=== PATIENT | male | born 1960 | race Caucasian/White ===

== ENCOUNTER 2020-04-18 12:37 | Observation (INO) ==
[2020-04-18] MEDS ORDERED: SODIUM CHLORIDE 0.9% 1000ML 1,000 ML IV ONE (14:00)
--- NOTE | 2020-04-18 14:03 | Emergency Department Note ---
History of Present Illness General Chief complaint: Shortness of Breath/Dyspnea Stated complaint: SOB,BLOOD CLOT L LEG Time Seen by Provider: 04/18/20 13:36 Source: patient Mode of arrival: ambulatory Limitations: no limitations History of Present Illness Provider complaint: Short of breath, known DVT Onset (ago): hour(s) Associated symptoms: + shortness of breath; no chest pain, no fever/chills, no loss of appetite and no nausea/vomiting Treatments prior to arrival: none Is a 60-year-old male who presents emergency department with concern for shortness of breath. Patient was diagnosed on Tuesday with a DVT, and started on Lovenox injections. He states he is scheduled to follow-up with our Coumadin clinic on Tuesday. Patient states today he had an episode where he felt very short of breath, states the symptoms have since improved, however due to the known DVT he came in for additional evaluation. Patient denies any prior history of DVT or PE. States a first-degree relative did have a blood clot, however he does not recall any complications or other family history. Patient states when he saw his family doctor to discuss this it was felt that this was a result of relative immobility during the pandemic. Patient denies any current chest pain or palpitations, fevers or chills. Patient has noticed slightly increased fatigue. He states he has been elevating his leg as often as he can at rest. Patient states he did start giving himself Lovenox injections. When he called his family doctor after having the symptoms today he was referred to the emergency room for evaluation of a possible PE. Pt seen during a time of high acuity and national emergency pandemic while wearing PPE. Home Medications Medication Instructions Recorded Confirmed Type alprazolam 0.5 mg PO BID PRN 04/14/20 04/18/20 History propranolol 20 mg PO DAILY PRN 04/14/20 04/18/20 History rivaroxaban [Xarelto] 15 mg PO BID 21 Days #42 tab 04/19/20 Rx rivaroxaban [Xarelto] 20 mg PO DAILY #30 tab 04/19/20 Rx Allergies Allergy/AdvReac Type Severity Reaction Status Date / Time tetanus immune globulin Allergy Unknown Unverified 04/18/20 14:39 Past Med/Surg History Medical History Anxiety No pertinent family history Surgical History No pertinent past surgical history Family History (Updated 04/18/20 @ 17:54 by TJ Parks) Grandfather (Paternal) Deep vein thrombosis Social History Smoking Status: Never smoker Hx Alcohol Use: Yes Alcohol type: wine and hard liquor Hx Substance Use: No Preferred Language: [place] Beliefs That Will Affect Care: None Current Living Situation: Significant Other Feels Safe at Home: Yes Assistive Devices: None Review of Systems See HPI for pertinent positives & negatives. and A total of 10 systems reviewed and were otherwise negative Physical Exam Vital Signs Vital Signs - 24 hr 04/18/20 12:58 04/18/20 13:06 04/18/20 13:40 Temperature 36.7 C Temperature Source Temporal Artery Scan Pulse Rate 69 Pulse Rate from SpO2 Sensor Respiratory Rate 19 Respiratory Effort / Characteristics Non-Labored Spontaneous Non-Labored Spontaneous Respiratory Depth Normal Normal Blood Pressure 130/93 Blood Pressure Mean 105 Blood Pressure Position Sitting Pulse Oximetry 95 98 Oxygen Delivery Method Room Air Room Air Room Air Sepsis Recent Fever Within 48 Hours No Sepsis New/Unexplained Change in Mental Status No Sepsis Action Taken by Nursing No Action Required 04/18/20 14:28 04/18/20 15:00 04/18/20 15:39 Temperature Temperature Source Pulse Rate 49 L 54 L 61 Pulse Rate from SpO2 Sensor 51 L 55 L 63 Respiratory Rate 13 14 12 Respiratory Effort / Characteristics Respiratory Depth Blood Pressure 122/80 133/85 Blood Pressure Mean 94 101 Blood Pressure Position Pulse Oximetry 97 97 94 Oxygen Delivery Method Sepsis Recent Fever Within 48 Hours Sepsis New/Unexplained Change in Mental Status Sepsis Action Taken by Nursing 04/18/20 15:40 Temperature Temperature Source Pulse Rate 64 Pulse Rate from SpO2 Sensor 64 Respiratory Rate 12 Respiratory Effort / Characteristics Respiratory Depth Blood Pressure Blood Pressure Mean Blood Pressure Position Pulse Oximetry 98 Oxygen Delivery Method Sepsis Recent Fever Within 48 Hours Sepsis New/Unexplained Change in Mental Status Sepsis Action Taken by Nursing GENERAL: alert, well appearing, well nourished, no distress, non-toxic EYE EXAM: normal conjunctiva, PERRL and EOM's grossly intact OROPHARYNX: no exudate, no erythema, lips, buccal mucosa, and tongue normal and mucous membranes are moist NECK: supple, no nuchal rigidity, no adenopathy, non-tender LUNGS: Clear to auscultation. Normal chest wall mechanics, no w/r/r HEART: no murmurs, S1 normal and S2 normal ABDOMEN: abdomen soft, non-tender, normo-active bowel sounds, no masses, no rebound or guarding. BACK: Back is symmetrical on inspection and there is no deformity, no midline tenderness, no CVA tenderness. SKIN: no rashes and no bruising UPPER EXTREMITIES: upper extremities are grossly normal. FROM, nml pulses b/l. LOWER EXTREMITIES: Trace left LE pitting edema. FROM, nml pulses b/l. NEURO EXAM: Normal sensorium, cranial nerves II-XII grossly intact, normal speech, no gross weakness of arms, no gross weakness of legs. Gross sensation intact. Course Course 1555: Patient updated on results at bedside. 1608: Case discussed with Dr. Simpson and ARGELIA Espinosa. They will see if it is possible for patient to have an echo done emergently. Administered Medications Discontinued Medications Alprazolam (Alprazolam 0.5 Mg Tablet) 0.5 mg PO BID PRN PRN Reason: Anxiety Stop: 05/18/20 20:21 Last Admin: 04/19/20 08:00 Dose: 0.5 mg Documented by: [id number] Admin: 04/18/20 20:59 Dose: 0.5 mg Documented by: [id number] Sodium Chloride (Nss 1000ml) 1,000 mls @ 999 mls/hr IV .Q1H1M ONE Stop: 04/18/20 15:00 Last Infusion: 04/18/20 15:38 Dose: 0 mls/hr Documented by: [id number] Admin: 04/18/20 14:24 Dose: 999 mls/hr Documented by: [id number] Ioversol (Optiray 320 125ml) 116 ml IV ONCE ONE Stop: 04/18/20 15:29 Last Admin: 04/18/20 15:29 Dose: 116 ml Documented by: [id number] Ioversol (Optiray 320 125ml) 120 ml IV ONCE ONE Stop: 04/18/20 18:41 Last Admin: 04/18/20 18:41 Dose: 120 ml Documented by: [id number] Propranolol HCl (Propranolol Hcl 20 Mg Tab) 20 mg PO DAILY PRN PRN Reason: Anxiety Stop: 05/18/20 20:21 Last Admin: 04/19/20 08:00 Dose: 20 mg Documented by: [id number] Rivaroxaban (Rivaroxaban 15 Mg Tab) 15 mg PO Q12H BEVERLY Stop: 05/08/20 19:59 Last Admin: 04/19/20 08:00 Dose: 15 mg Documented by: [id number] Admin: 04/18/20 20:59 Dose: 15 mg Documented by: [id number] Medical Decision Making Differential Diagnosis Differential diagnoses includes but is not limited to pneumonia, bronchitis, COPD/Asthma exacerbation, pneumothorax, pulmonary embolism, congestive heart failure, acute coronary syndrome Medical Records Attestation: I reviewed the patient's medical records. Home Medications Current Medication List: was personally reviewed by me Laboratory Data Attestation: I reviewed the patient's lab results. Result diagrams: 04/18/20 14:24 04/18/20 14:24 Lab Results 04/18/20 04/18/20 04/18/20 Range/Units 14:24 14:24 14:24 WBC 6.28 (4.8-10.8) K/uL RBC 4.65 L (4.7-6.1) M/uL Hgb 15.5 (14.0-18.0) g/dL Hct 43.6 (42-52) % MCV 93.8 (80-100) fL MCH 33.3 (25-34) pg MCHC 35.6 (32-36) g/dL RDW Std Deviation 41.1 (36.4-46.3) fL RDW Coeff of Bren 12.2 (11.5-14.5) % Plt Count 271 (130-400) K/uL MPV 8.6 (7.4-10.4) fL Immature Gran % (Auto) 0.2 % Neut % (Auto) 61.9 % Lymph % (Auto) 25.3 % [place] % (Auto) 8.3 % Eos % (Auto) 3.8 % Baso % (Auto) 0.5 % Neut # (Auto) 3.89 (1.4-6.5) K/uL Lymph # (Auto) 1.59 (1.2-3.4) K/uL [place] # (Auto) 0.52 (0.11-0.59) K/uL Eos # (Auto) 0.24 (0-0.5) K/uL Baso # (Auto) 0.03 (0-0.2) K/uL Immature Gran # (Auto) 0.01 (0.00-0.02) K/uL PT 11.1 (9.0-12.0) Seconds INR 1.1 (0.9-1.1) Sodium 140 (136-145) mmol/L Potassium 3.7 (3.5-5.1) mmol/L Chloride 107 (98-107) mmol/L Carbon Dioxide 26 (21-32) mmol/L Anion Gap 8.0 (3-11) BUN 12 (7-18) mg/dl Creatinine 0.97 (0.6-1.4) mg/dl Est Cr Clr Drug Dosing 95.8 ml/min Est GFR ( Amer) 98.6 Est GFR (Non-Af Amer) 85.1 BUN/Creatinine Ratio 12.6 (10-20) Glucose 85 (70-99) mg/dl Calcium 9.8 (8.5-10.1) mg/dl Magnesium 2.1 (1.8-2.4) mg/dl Total Bilirubin 0.6 (0.2-1) mg/dl AST 60 H (15-37) U/L ALT 65 (12-78) U/L Alkaline Phosphatase 63 (45-117) U/L Troponin I < 0.015 (0-0.045) ng/ml NT-Pro-B Natriuret Pep 86 (0-900) pg/ml Total Protein 8.1 (6.4-8.2) gm/dl Albumin 4.1 (3.4-5.0) gm/dl Globulin 4.0 (2.5-4.0) gm/dl Albumin/Globulin Ratio 1.0 (0.9-2) Lipase 93 (73-393) U/L Anti-Cardiolipin IgG Ab Anti-Cardiolipin IgM Ab COVID-19 Eval Order SARS-CoV-2, RNA, NAAT (NEGATIVE) 04/18/20 04/18/20 04/18/20 Range/Units 17:59 17:59 19:10 WBC (4.8-10.8) K/uL RBC (4.7-6.1) M/uL Hgb (14.0-18.0) g/dL Hct (42-52) % MCV (80-100) fL MCH (25-34) pg MCHC (32-36) g/dL RDW Std Deviation (36.4-46.3) fL RDW Coeff of Bren (11.5-14.5) % Plt Count (130-400) K/uL MPV (7.4-10.4) fL Immature Gran % (Auto) % Neut % (Auto) % Lymph % (Auto) % [place] % (Auto) % Eos % (Auto) % Baso % (Auto) % Neut # (Auto) (1.4-6.5) K/uL Lymph # (Auto) (1.2-3.4) K/uL [place] # (Auto) (0.11-0.59) K/uL Eos # (Auto) (0-0.5) K/uL Baso # (Auto) (0-0.2) K/uL Immature Gran # (Auto) (0.00-0.02) K/uL PT (9.0-12.0) Seconds INR (0.9-1.1) Sodium (136-145) mmol/L Potassium (3.5-5.1) mmol/L Chloride (98-107) mmol/L Carbon Dioxide (21-32) mmol/L Anion Gap (3-11) BUN (7-18) mg/dl Creatinine (0.6-1.4) mg/dl Est Cr Clr Drug Dosing ml/min Est GFR ( Amer) Est GFR (Non-Af Amer) BUN/Creatinine Ratio (10-20) Glucose (70-99) mg/dl Calcium (8.5-10.1) mg/dl Magnesium (1.8-2.4) mg/dl Total Bilirubin (0.2-1) mg/dl AST (15-37) U/L ALT (12-78) U/L Alkaline Phosphatase (45-117) U/L Troponin I (0-0.045) ng/ml NT-Pro-B Natriuret Pep (0-900) pg/ml Total Protein (6.4-8.2) gm/dl Albumin (3.4-5.0) gm/dl Globulin (2.5-4.0) gm/dl Albumin/Globulin Ratio (0.9-2) Lipase (73-393) U/L Anti-Cardiolipin IgG Ab Cancelled Anti-Cardiolipin IgM Ab Cancelled COVID-19 Eval Order Covid19 IDNow [facility] SARS-CoV-2, RNA, NAAT NEGATIVE (NEGATIVE) Imaging Data Radiologist's Impression: CT ANGIOGRAPHY OF THE CHEST, PULMONARY EMBOLUS PROTOCOL CLINICAL HISTORY: Shortness of breath. Evaluate for pulmonary embolus. COMPARISON STUDY: No previous studies for comparison. TECHNIQUE: Following IV administration of 116 mL of Optiray-320, helical axial images of the chest were obtained utilizing the pulmonary embolus protocol. Maximal intensity projections and sagittal and coronal reformats were viewed on an independent 3D workstation. IV contrast was administered without complication. Automated exposure control was utilized for the study. A dose lowering technique was utilized adhering to the principles of ALARA. CT DOSE: 565.61 mGycm FINDINGS: Multiple lobar and segmental pulmonary emboli within the right lower lobe are noted. Segmental pulmonary emboli within the right middle lobe are noted. There are a few additional tiny bilateral pulmonary emboli. No pulmonary infarct is present. There is no pericardial effusion. There is mild dilatation of the right ventricle without definitive CT evidence for right heart strain. No pneumothorax or pleural effusion is noted. Note is made of a few small groundg lass opacities within the right upper lobe. Bony thorax is unremarkable. Upper abdomen is unremarkable. There is no thoracic lymphadenopathy. IMPRESSION: 1. Multiple lobar and segmental pulmonary emboli within the right lung. A few additional smaller pulmonary emboli, as described above. No pulmonary infarct. Mild dilatation of the right ventricle. Mild right heart strain would be difficult to exclude. 2. A few groundglass opacities within the right upper lobe. These favor an infectious process. A follow-up chest CT in 3 months to ensure resolution is recommended. ACT 112: Negative or not required by law. Electronically signed by: Jay Soto M.D. 04/18/2020 3:45 PM ECG Data Attestation: I personally reviewed and interpreted this ECG as follows: Indication: + SOB/dyspnea Rate (beats per minute): 57 Rhythm: + sinus bradycardia ECG Intervals/blocks: + Normal QRS and + Normal QT ECG Theresa: + Normal ECG ST segments: + Normal ST segments MDM Narrative Pt here with concern for an episode of SOB after being dx with extensive dvt the beginning of the week. No prior hx of DVT/PE, no significant fam hx. VS stable. No current sob at rest. Labs sent and CT performed after extensive bedside discussion with the patient. I did review recent LLE doppler which showed extensive clot the entire length of the LLE. CT did review multiple subsegmental PE's. Pt did receive his lovenox earlier today and had been giving himself injection daily awaiting further discussion in coag clinic appt regarding oral medication. Case discussed with hospitalist for additional evaluation and mgmt given extensive multiple lobe involvement, extensive DVT and risk fo propogation, as well as rad mention on CT of possible evolving right heart strain despite negative trop and BNP. VS stable in the ER. Pt verbalized understanding of all results. An order was placed for continuous cardiac monitoring. The monitor shows a rate of _70_ with _normal sinus_ rhythm. Impression & Plan Acute dyspnea, DVT (deep venous thrombosis), Pulmonary embolism Discharge Plan Visit Data Chief Complaint: Shortness of Breath/Dyspnea Stated Complaint: SOB,BLOOD CLOT L LEG ED Provider: Melissa Tavares Discharge Problem: Acute dyspnea, DVT (deep venous thrombosis), Pulmonary embolism Patient Disposition: Admitted As Inpatient Discharge Instructions Interventions: ED Discharge Assessment Last Done: 04/18/20 19:52
[2020-04-18 14:37] LABS: Basophils # (auto) 0.03 K/uL (0-0.2); Basophils % (auto) 0.5 %; Eosinophils # (auto) 0.24 K/uL (0-0.5); Eosinophils % (auto) 3.8 %; Hematocrit (blood only) 43.6 % (42-52); Hemoglobin 15.5 g/dL (14.0-18.0); Immature Granulocytes # (auto) 0.01 K/uL (0.00-0.02); Immature Granulocytes % (auto) 0.2 %; Lymphocytes # (auto) 1.59 K/uL (1.2-3.4); Lymphocytes % (auto) 25.3 %; Mean Corpuscular Hemoglobin 33.3 pg (25-34); Mean Corpuscular Hgb Conc 35.6 g/dL (32-36); Mean Corpuscular Volume 93.8 fL (80-100); Mean Platelet Volume 8.6 fL (7.4-10.4); Monocytes # (auto) 0.52 K/uL (0.11-0.59); Monocytes % (auto) 8.3 %; Neutrophils # (auto) 3.89 K/uL (1.4-6.5); Neutrophils % (auto) 61.9 %; Platelet Count 271 K/uL (130-400); RDW Coefficient of Variation 12.2 % (11.5-14.5); RDW Standard Deviation 41.1 fL (36.4-46.3); Red Blood Count 4.65 M/uL (4.7-6.1); White Blood Count 6.28 K/uL (4.8-10.8)
[2020-04-18 14:48] LABS: INR 1.1 (0.9-1.1); Prothrombin Time 11.1 Seconds (9.0-12.0)
[2020-04-18 14:56] LABS: Alanine Aminotransferase 65 U/L (12-78); Albumin Level 4.1 gm/dl (3.4-5.0); Aspartate Aminotransferase 60 U/L (15-37); BUN Creatinine Ratio 12.6 (10-20); Blood Urea Nitrogen 12 mg/dl (7-18); Calcium 9.8 mg/dl (8.5-10.1); Carbon Dioxide 26 mmol/L (21-32); Chloride 107 mmol/L (98-107); Creatinine Clr Calc Pharmacy 95.8 ml/min; Est GFR (African American) 98.6; Est GFR (Non-African American) 85.1; Glucose 85 mg/dl (70-99); Lipase 93 U/L (73-393); Magnesium 2.1 mg/dl (1.8-2.4); Potassium 3.7 mmol/L (3.5-5.1); Sodium 140 mmol/L (136-145)
[2020-04-18 15:01] LABS: Alkaline Phosphatase 63 U/L (45-117); Bilirubin,Total 0.6 mg/dl (0.2-1); NT Pro B Type Natriuretic Pept 86 pg/ml (0-900); Total Protein 8.1 gm/dl (6.4-8.2); Troponin I < 0.015 ng/ml (0-0.045)
[2020-04-18] MEDS ORDERED: OPTIRAY 320 125ml IV ONE ×2 (15:28→18:40)
--- NOTE | 2020-04-18 15:47 | CT Scan Report ---
CT ANGIOGRAPHY OF THE CHEST, PULMONARY EMBOLUS PROTOCOL CLINICAL HISTORY: Shortness of breath. Evaluate for pulmonary embolus. COMPARISON STUDY: No previous studies for comparison. TECHNIQUE: Following IV administration of 116 mL of Optiray-320, helical axial images of the chest we re obtained utilizing the pulmonary embolus protocol. Maximal intensity projections and sagittal and coronal reformats were viewed on an independent 3D workstation. IV contrast was administered withou t complication. Automated exposure control was utilized for the study. A dose lowering technique wa s utilized adhering to the principles of ALARA. CT DOSE: 565.61 mGycm FINDINGS: Multiple lobar and segmental pulmonary emboli within the right lower lobe are noted. Segme ntal pulmonary emboli within the right middle lobe are noted. There are a few additional tiny bilater al pulmonary emboli. No pulmonary infarct is present. There is no pericardial effusion. There is mild dilatation of the right ventricle without definitive CT evidence for right heart strain. No pneumoth orax or pleural effusion is noted. Note is made of a few small groundglass opacities within the right upper lobe. Bony thorax is unremarkable. Upper abdomen is unremarkable. There is no thoracic lymphad enopathy. IMPRESSION: 1. Multiple lobar and segmental pulmonary emboli within the right lung. A few additional smaller pulm onary emboli, as described above. No pulmonary infarct. Mild dilatation of the right ventricle. Mild right heart strain would be difficult to exclude. 2. A few groundglass opacities within the right upper lobe. These favor an infectious process. A foll ow-up chest CT in 3 months to ensure resolution is recommended. ACT 112: Negative or not required by law. Electronically signed by: Jay Soto M.D. 04/18/2020 3:45 PM
--- NOTE | 2020-04-18 17:31 | XCELERA ---
[id number]
--- NOTE | 2020-04-18 18:00 | History & Physical Report ---
Date of Service April 18, 2020 Assessment & Plan (1) Pulmonary embolism: Acute PE in the setting of large left DVT, ? failure of lovenox - Lovenox tonight with Xeralto (2) DVT (deep venous thrombosis): - As above - No SCDs to lower legs - Patient may ambulate (3) Anxiety: Continue Xanax PRN History of Present Illness Primary Care Provider: Gaudencio Pratt MD 60 YOM comes to the emergency room for shortness of breath in the setting of being diagnosed with a large left leg DVT on 14Apr2020. Duplex revealed an occlusive deep venous thrombus within the left common femoral, femoral, popliteal, posterior tibial, peroneal and anterior tibial veins, and several vessels were expanded. The patient opted for Lovenox treatment with Coumadin. He was discharged on weight based Lovenox and has not started his Coumadin yet. The patient denies any trauma to the leg or prolonged travel. He endorses that he has been more sedintary than normal by working from home and spending 8-12 hours in his office sitting. He normally was active and enjoyed playing soccer prior to the pandemic. He has been working from home for approx the past year. He started getting some right sided pleural chest pain last night and increasingly dyspneic which brought him to the emergency room. A CTA scan was done in the EMD with multiple lobar segmental pulmonary emboli in the right lower and middle lobes. The patient has a PESI score of 0 and has no evidence of right sided heart strain with normal BNP of 86, negative troponin, and a ECHO that shows normal PA pressures as well as no right heart strain. The patient is exhibiting no signs of shock and is not tachycardic or hypoxic. Concerning for the size of the lower extremity DVT in the setting of no significant history a CT venogram of the abdomen and pelvis is obtained to identify the propagation of the DVT. Patient will be observed in house pending these results as well as transition to a NOAC. Allergies Allergy/AdvReac Type Severity Reaction Status Date / Time tetanus immune globulin Allergy Unknown Unverified 04/18/20 14:39 Home Medications Medication Instructions Recorded Confirmed Type alprazolam 0.5 mg PO BID PRN 04/14/20 04/18/20 History enoxaparin [Lovenox] 100 mg SUBCUT Q12H #28 ml 04/14/20 04/18/20 Rx propranolol 20 mg PO DAILY PRN 04/14/20 04/18/20 History Past Med/Surg History Medical History Anxiety No pertinent family history Surgical History No pertinent past surgical history Family History (Updated 04/18/20 @ 17:54 by TJ Parks) Grandfather (Paternal) Deep vein thrombosis Social History Smoking Status: Never smoker Feels Safe at Home: Yes Review of Systems Review of Systems: REVIEW OF SYSTEMS: Constitutional: No fever, sweats or chills Eyes: No diplopia, no worsening or blurred vision ENT: normal hearing, no trouble swallowing Respiratory: No cough, sputum, dyspnea at rest or on exertion Cardiovascular: No chest pain, tightness or palpitations Abdomen: No pain, nausea, vomiting, diarrhea or constipation Musculoskeletal: (+) left lower leg calf pain, swelling, Neurologic: No weakness, numbness/tingling, or balance problems Psychiatric: (+) anxiety (-) depression Skin: No rash or itch Physical Exam Physical Exam: REVIEW OF SYSTEMS: Constitutional: No fever, sweats or chills Eyes: No diplopia, no worsening or blurred vision ENT: normal hearing, no trouble swallowing Respiratory: dyspnea without hypoxia with movment No cough, sputum, Cardiovascular: No chest pain, tightness or palpitations Abdomen: No pain, nausea, vomiting, diarrhea or constipation Musculoskeletal: No joint pain, calf pain, swelling Neurologic: No weakness, numbness/tingling, or balance problems Psychiatric: No anxiety or depression Skin: No rash or itch Results & Data Results & Data ([facility]) Vital Signs (Past 12 Hours) Vital Signs Temp Pulse Resp BP Pulse Ox 04/18/20 15:40 64 12 98 04/18/20 15:39 61 12 133/85 94 04/18/20 15:00 54 L 14 97 04/18/20 14:28 49 L 13 122/80 97 04/18/20 13:40 98 04/18/20 12:58 36.7 C 69 19 130/93 95 Laboratory Results Abnormal lab results 04/18/20 04/18/20 Range/Units 14:24 14:24 RBC 4.65 L (4.7-6.1) M/uL AST 60 H (15-37) U/L Diagnostic Findings CT ANGIOGRAPHY OF THE CHEST, PULMONARY EMBOLUS PROTOCOL CLINICAL HISTORY: Shortness of breath. Evaluate for pulmonary embolus. COMPARISON STUDY: No previous studies for comparison. TECHNIQUE: Following IV administration of 116 mL of Optiray-320, helical axial images of the chest were obtained utilizing the pulmonary embolus protocol. Maximal intensity projections and sagittal and coronal reformats were viewed on an independent 3D workstation. IV contrast was administered without complication. Automated exposure control was utilized for the study. A dose lowering technique was utilized adhering to the principles of ALARA. CT DOSE: 565.61 mGycm FINDINGS: Multiple lobar and segmental pulmonary emboli within the right lower lobe are noted. Segmental pulmonary emboli within the right middle lobe are noted. There are a few additional tiny bilateral pulmonary emboli. No pulmonary infarct is present. There is no pericardial effusion. There is mild dilatation of the right ventricle without definitive CT evidence for right heart strain. No pneumothorax or pleural effusion is noted. Note is made of a few small groundglass opacities within the right upper lobe. Bony thorax is unremarkable. Upper abdomen is unremarkable. There is no thoracic lymphadenopathy. IMPRESSION: 1. Multiple lobar and segmental pulmonary emboli within the right lung. A few additional smaller pulmonary emboli, as described above. No pulmonary infarct. Mild dilatation of the right ventricle. Mild right heart strain would be difficult to exclude. 2. A few groundglass opacities within the right upper lobe. These favor an infectious process. A follow-up chest CT in 3 months to ensure resolution is recommended. CT abdomen pelvis veno w con CT DOSE: 513.25 mGy.cm CLINICAL HISTORY: Lower extremity DVT. Acute pulmonary embolism. Evaluate for clot propagation into the IVC. TECHNIQUE: The patient was scanned in a dynamic helical fashion during intravenous administration of 120 cc of Optiray 320. Venous phase imaging was performed. A dose lowering technique was utilized adhering to the principles of ALARA. COMPARISON STUDY: None. FINDINGS: Images to the lung bases reveal minimal dependent atelectasis. No hepatic masses are visualized. There is no ductal dilatation. No gallbladder abnormalities are visualized. No splenic masses are visualized. No pancreatic masses are visualized. No adrenal masses are visualized. There is no hydronephrosis. No solid renal masses are visualized. There are no transition zones indicate bowel obstruction. The appendix appears normal. There is no evidence of acute diverticulitis. There is no ascites. There is no free intraperitoneal air. There is no evidence of abdominal aortic aneurysm. There is no pathologic adenopathy. There are no abnormal pelvic masses. There is a filling defect within the left superficial femoral and common femoral vein indicative of a DVT. No thrombus is visualized within the left external iliac, common iliac, or IVC. Gas within the left anterior abdominal wall is felt to be secondary to an injection site. IMPRESSION: 1. Left common femoral and superficial femoral vein DVT 2. No evidence of IVC, common iliac or external iliac DVT 3. No evidence of bowel obstruction. No evidence of free air. 4. No evidence of acute appendicitis. No evidence of acute diverticulitis. Medications Administered Discontinued Medications Sodium Chloride (Nss 1000ml) 1,000 mls @ 999 mls/hr IV .Q1H1M ONE Stop: 04/18/20 15:00 Last Infusion: 04/18/20 15:38 Dose: 0 mls/hr Documented by: [id number] Admin: 04/18/20 14:24 Dose: 999 mls/hr Documented by: [id number] Ioversol (Optiray 320 125ml) 116 ml IV ONCE ONE Stop: 04/18/20 15:29 Last Admin: 04/18/20 15:29 Dose: 116 ml Documented by: [id number] Ioversol (Optiray 320 125ml) 120 ml IV ONCE ONE Stop: 04/18/20 18:41 Last Admin: 04/18/20 18:41 Dose: 120 ml Documented by: [id number] Code Status & VTE Plan Code Status VTE: Therapuetic anticoagulation NO SCDS Code status: Full VTE Prophylaxis Plan VTE Prophylaxis will be ordered: Yes Supervising Physician Co-Signing Physician Notes Patient was seen and examined independently I discussed the case with Jesús SPENCER I reviewed pertinent past medical social family history and also the plan of care and agree with the plan of care. Patient presents after being on Lovenox with Doppler embolism after having a large DVT in his left leg. Continue lively discussion about what anticoagulant the patient should be on. The patient was steered towards Coumadin by his PCP however given the fact that this is a Lovenox failure we feel the best move would be to go to a factor Xa inhibitor given the fact there is no RV strain on echocardiogram and no inferior vena cava clot seen on CT venogram. Patient was seen he was in no distress he had no pleural rub or pericardial rub his heart was regular his lungs were clear his left leg still has some trace swelling and minor discomfort in his muscles Initiation of Xarelto therapy this evening, observation overnight questions regarding the choice of his anticoagulation and is felt best that he be observed overnight to be sure there is no untoward side effects from initiating this new medication. If he feels well in the morning he has no hypoxia and is ambulating without discomfort he may be discharged home Any exceptions will be noted below PG Care Time/CCT Total # of Minutes Spent Total Time Spent with Patient: Total time spent is greater than 50% in coordination of care (as documented) at patient's floor/unit and/or counseling patient: Coding Level of Care Code 64690 OBS Care - Level 3 Diagnoses Pulmonary embolism I26.94 Pulmonary embolism type: multiple subsegmental (without acute cor pulmonale) DVT (deep venous thrombosis) I82.4Y2 Affected thrombotic vein of extremity: unspecified lower extremity proximal vein Chronicity: acute DVT location: lower extremity Laterality: left Anxiety F41.9 (1) DVT (deep venous thrombosis) Affected thrombotic vein of extremity: unspecified lower extremity proximal vein Chronicity: acute DVT location: lower extremity Laterality: left Qualified Code(s): I82.4Y2 - Acute embolism and thrombosis of unspecified deep veins of left proximal lower extremity (2) Pulmonary embolism Pulmonary embolism type: multiple subsegmental (without acute cor pulmonale) Qualified Code(s): I26.94 - Multiple subsegmental pulmonary emboli without acute cor pulmonale
--- NOTE | 2020-04-18 18:17 | Electrocardiogram Report ---
Test Reason : Blood Pressure : / mmHG Vent. Rate : 057 BPM Atrial Rate : 057 BPM P-R Int : 158 ms QRS Dur : 114 ms QT Int : 450 ms P-R-T Axes : 051 039 025 degrees QTc Int : 438 ms Sinus bradycardia with sinus arrhythmia Otherwise normal ECG No previous ECGs available Confirmed by Gaudencio Lopez ([id number]) on 04/18/2020 6:17:35 PM Referred By: REFERRED SELF Confirmed By:Gaudencio Lopez
--- NOTE | 2020-04-18 18:56 | CT Scan Report ---
CT abdomen pelvis veno w con CT DOSE: 513.25 mGy.cm CLINICAL HISTORY: Lower extremity DVT. Acute pulmonary embolism. Evaluate for clot propagation into t he IVC. TECHNIQUE: The patient was scanned in a dynamic helical fashion during intravenous administration of 120 cc of Optiray 320. Venous phase imaging was performed. A dose lowering technique was utilized ad umer to the principles of ALARA. COMPARISON STUDY: None. FINDINGS: Images to the lung bases reveal minimal dependent atelectasis. No hepatic masses are visualized. There is no ductal dilatation. No gallbladder abnormalities are visualized. No splenic masses are visualized. No pancreatic masses are visualized. No adrenal masses are visualized. There is no hydronephrosis. No solid renal masses are visualized. There are no transition zones indicate bowel obstruction. The appendix appears normal. There is no ev idence of acute diverticulitis. There is no ascites. There is no free intraperitoneal air. There is no evidence of abdominal aortic aneurysm. There is no pathologic adenopathy. There are no abnormal pelvic masses. There is a filling defect within the left superficial femoral and common femoral vein indicative of a DVT. No thrombus is visualized within the left external iliac, common iliac, or IVC. Gas within the left anterior abdominal wall is felt to be secondary to an injection site. IMPRESSION: 1. Left common femoral and superficial femoral vein DVT 2. No evidence of IVC, common iliac or external iliac DVT 3. No evidence of bowel obstruction. No evidence of free air. 4. No evidence of acute appendicitis. No evidence of acute diverticulitis. ACT 112: Negative or not required by law. Electronically signed by: Harjit Ramirez M.D. 04/18/2020 6:55 PM
[2020-04-18] MEDS ORDERED: ACETAMINOPHEN 325 MG TAB PO PRN (20:22)
[2020-04-18] MEDS ORDERED: PROPRANOLOL HCL 20 MG TAB PO PRN (20:22)
[2020-04-18] MEDS: RIVAROXABAN 15 MG TAB PO SCH (20:59)
[2020-04-18] MEDS: ALPRAZolam 0.5 MG TABLET PO PRN (20:59)
[2020-04-19] MEDS: ALPRAZolam 0.5 MG TABLET PO PRN (08:00)
[2020-04-19] MEDS: RIVAROXABAN 15 MG TAB PO SCH (08:00)
--- NOTE | 2020-04-19 16:21 | Discharge Summary ---
Date of Service date of admission - April 18, 2020 date of discharge - April 19, 2020 Admission HPI Per Admitting Provider 60 YOM comes to the emergency room for shortness of breath in the setting of being diagnosed with a large left leg DVT on 14Apr2020. Duplex revealed an occlusive deep venous thrombus within the left common femoral, femoral, popliteal, posterior tibial, peroneal and anterior tibial veins, and several vessels were expanded. The patient opted for Lovenox treatment with Coumadin. He was discharged on weight based Lovenox and has not started his Coumadin yet. The patient denies any trauma to the leg or prolonged travel. He endorses that he has been more sedintary than normal by working from home and spending 8-12 hours in his office sitting. He normally was active and enjoyed playing soccer prior to the pandemic. He has been working from home for approx the past year. He started getting some right sided pleural chest pain last night and increasingly dyspneic which brought him to the emergency room. A CTA scan was done in the [facility] with multiple lobar segmental pulmonary emboli in the right lower and middle lobes. The patient has a PESI score of 0 and has no evidence of right sided heart strain with normal BNP of 86, negative troponin, and a ECHO that shows normal PA pressures as well as no right heart strain. The patient is exhibiting no signs of shock and is not tachycardic or hypoxic. Concerning for the size of the lower extremity DVT in the setting of no significant history a CT venogram of the abdomen and pelvis is obtained to identify the propagation of the DVT. Patient will be observed in house pending these results as well as transition to a NOAC. Principal Diagnosis right-sided pulmonary emboli Discharge Exam Constitutional well developed and well nourished; no acute distress and no altered mental status ENMT external ear and nose normal, oropharynx normal Respiratory normal respiratory effort, lungs clear to auscultation Cardiovascular Rate/Rhythm: regular rate and regular rhythm Heart Sounds: normal S1 and normal S2; no murmur Vessels: posterior tibial pulses present and dorsalis pedis pulses present; no JVD Extremities: + edema (1+ left byrne and ankle) Gastrointestinal (Abdomen) normal bowel sounds, soft, nontender, no hepatosplenomegaly Skin hyperpigmented skin of left byrne and down to foot Psychiatric A+Ox3, euthymic affect Discharge Data Allergies Allergy/AdvReac Type Severity Reaction Status Date / Time tetanus immune globulin Allergy Unknown Unverified 04/18/20 14:39 Procedures Performed echocardiogram: * normal EF, 65% * normal RV size * normal RV systolic function * normal pulmonary artery pressure * no valvular dysfunction Ordered Studies 04/18/20 14:00 CT angio chest PE protocol Stat IMPRESSION: 1. Multiple lobar and segmental pulmonary emboli within the right lung. A few additional smaller pulmonary emboli, as described above. No pulmonary infarct. Mild dilatation of the right ventricle. Mild right heart strain would be difficult to exclude. 2. A few groundglass opacities within the right upper lobe. These favor an infectious process. A follow-up chest CT in 3 months to ensure resolution is recommended. 04/18/20 17:01 CT abdomen pelvis veno w con Stat IMPRESSION: 1. Left common femoral and superficial femoral vein DVT 2. No evidence of IVC, common iliac or external iliac DVT 3. No evidence of bowel obstruction. No evidence of free air. 4. No evidence of acute appendicitis. No evidence of acute diverticulitis. Hospital Course (1) Pulmonary embolism: Acute right-sided PEs in the setting of extensive DVTs of the left leg. The DVTs were diagnosed on 04/14/20 at which time he was initiated on therapeutic lovenox as an outpatient. As the hospital stay went on the patient stated that retrospectively he had noted mild chest symptoms dating back to around the time of the diagnosis of his DVTs. Thus, it is highly unlikely that the discovery of his PEs during this stay represented a lovenox treatment failure. During the stay he remained hemodynamically stable with normal O2 sats in room air (both at rest and with walking). Echo showed no evidence of right heart strain. The care team had several lengthy discussions about anticoagulation treatment options with him. He voiced a desire not to use coumadin as his first line treatment. Thus, xarelto was initiated. He received xarelto 15mg BID while hospitalized. The patient was instructed to take xarelto 15mg BID x 21 days, then revert to 20mg thereafter. He will need treatment for at least 6 months, but it could be much longer given the extensive nature of his VTE event. The exact cause of this VTE event is uncertain. He denied recent surgery, prolonged immobilization (air travel, car travel, etc), or any significant changes in his health. One family member had DVT but this person had such in his 70s. I advised him to speak with his PCP about cancer screenings including colonoscopy, EGD, PSA/prostate exam, etc. A hypercoagulability panel was dispatched prior to discharge including homocysteine level. I asked the patient to f/u with his PCP for ongoing management and to discuss his hypercoagulability panel when those labs are resulted. VTE instructions were given at discharge. (2) DVT (deep venous thrombosis): As above in "pulmonary embolism" (3) Anxiety: Continue Xanax PRN Continue inderal PRN Total Time Total Time Spent Total Time Spent (In Minutes): 45 Total Time Includes: Examination of the Patient, Discharge Planning, Medication Reconciliation and Communication With Other Providers Discharge Plan Discharge Items Patient Disposition: Home - Self-Care Reason For Visit: Pulmonary emboli Discharge Diagnosis: 1. right-sided pulmonary emboli 2. left leg DVTs 3. normal echocardiogram (heart ultrasound) 4. normal oxygen levels with walking Activity: As commented below Activity Comment: light activities until seen by Dr Pratt Sexual Activity: Wait until after follow-up appointment Exercise/Sports: Wait until after follow-up appointment Driving/Machine Use: Resume 1 day after discharge Non-emergency contact: Primary Care Provider Call non-emergency contact if: you have any medication questions, your symptoms worsen and you have a fever Follow-up/Referrals: Gaudencio Pratt MD [Primary Care Provider] - 04/24/20 10:30 am (see Dr Pratt in 5 days ) Diet: Regular Addtl Attending Provider Instructions: Mr Tubbs, A CAT scan of your lungs on 04/18/20 demonstrated right-sided blood clots called "pulmonary emboli." The pulmonary emboli occurred as a result of your left leg DVTs. Small pieces of the DVTs broke away, traveled through the circulation, and deposited in the arteries of the lungs. Once in the lungs they don't travel any further. You had been taking lovenox injections for your DVT blood clots. You have been changed to xarelto tablets. The exact cause of your blood clots is uncertain. Risk factors such as recent surgery, recent prolonged travel, and lengthy periods of immobilization have not been present. To look for the cause of your blood clots we have sent genetic blood work and other tests to see if you have a mutation or other factor that could have increased your chances of blood clots. I am also recommending that you speak to Dr Pratt about screening tests such as colonoscopy, upper endoscopy (EGD), prostate exam, and/or additional CAT scans. Lastly, your CAT scan of the lungs showed an "infiltrate" in the right upper lobe. Common causes of infiltrates include infection, inflammation, etc. At the very least you will need a repeat CAT scan of the lungs in [address] Pratt can arrange this for you. We are providing 4 tablets of xarelto to you. Take your first dose tonight. Then take another dose Tuesday am, Tuesday pm, and Tuesday am. Your pharmacy will have the rest of your xarelto by Tuesday afternoon. Take xarelto 15mg twice daily for 3 weeks, then 20mg once daily thereafter. You will need blood thinner for at least 6 months but it potentially could be longer depending on your pending tests and other work-up. I have given you a written script for the 20mg tablets. Do not fill until the 3-week ulisses. Since you will not be taking coumadin (warfarin) you do not need to see Dr Olguin in the coumadin clinic/anticoagulation clinic at [facility]. Follow-up - see Dr Pratt in 5 days Additional instructions regarding your blood thinner, Xarelto -- Your condition is typically treated with an anticoagulant. Anticoagulants will thin your blood to help prevent new clots. Your blood thinner is XARELTO. * You should take her medication exactly as directed. * Never skip a dose. * Never take a double dose. If you miss a dose, take it as soon as you remember. Call your Primary Care doctor if you experience any of the following: * Swelling or Pain in your leg * Sudden, continuous pain deep in a muscle * Pain that worsens when you are active or when you stand still for a long time * Chest Pain * Sudden Shortness of Breath * Rapid or pounding heart beat * Fainting * Dizziness * Cough with blood or bloody sputum * Sweating more than normal * Bruises * Heavy or uncontrolled bleeding * Blood in your urine, stool or vomit * Black or tarry stools * Recurrent, severe nosebleeds Caring for Your Self at Home: * Avoid sitting, standing or lying down for long periods without moving your legs and feet * When traveling by car, stop to get out and move around at least once every 3 hours * On long airplane, train or bus rides, get up and move around when possible * If you can't get up, wiggle your toes and tighten your calves to keep your blood moving * While shaving use an electric razor rather than a traditional straight razor; using an electric razor reduces the risk of cuts and subsequent bleeding Good luck on your road to recovery and take care! -Dr Lam Pending Studies at Discharge: Yes Studies:: genetic studies as well as other blood work to rule out inherited causes of blood clots Stand-Alone Forms: [facility], Smoking Cessation Medications and DC Order Prescriptions: New Xarelto 15 mg Tablet 15 mg PO BID 21 Days Qty: 42 RF: 0 Xarelto 20 mg tablet 20 mg PO DAILY Qty: 30 RF: 5 Continued alprazolam 0.5 mg tablet 0.5 mg PO BID PRN (Reason: Anxiety) RF: 0 propranolol 20 mg tablet 20 mg PO DAILY PRN (Reason: Anxiety) RF: 0 Discontinued enoxaparin [Lovenox] 100 mg/mL syringe 100 mg subcut Q12H Qty: 28 RF: 1 Discharge Orders: Discharge Order (Routine); Ordered 04/19/20 Ordered By: Leland Damico/Other Patient Handouts: Embolism Pulmonary Dc, Rivaroxaban oral tablets Admission Data Admit Date/Time: 04/18/20 19:18 Attending Provider: Leland Lam Admit Provider: Steve Nair Primary Care Provider: Gaudencio Pratt Other Interventions: Discharge Summary Assessment (RN) Last Done: 04/19/20 16:13 Coding Level of Care Code D/C Day Management >30 mins Diagnoses Pulmonary embolism I26.94 Pulmonary embolism type: multiple subsegmental (without acute cor pulmonale) DVT (deep venous thrombosis) I82.4Y2 Affected thrombotic vein of extremity: unspecified lower extremity proximal vein Chronicity: acute DVT location: lower extremity Laterality: left Anxiety F41.9
[2020-04-19] MEDS ORDERED: RIVAROXABAN 15 MG TAB PO SCH ×2 (16:45→21:00)
[2020-04-22 23:01] LABS: Anti-Thrombin III Activity 85 % normal (80-135); Protein S Functional(Activity) 130 % (70-150)
[2020-04-23 00:04] LABS: Anti Cardiolipin Ab IgG <14 GPL; Anti Cardiolipin Ab IgM <12 MPL
[2020-04-23 06:35] LABS: PTT LA Screen 37 sec (<=40)
== END 2020-04-19 18:37 | disposition home or self-care (01) ==
LOC: 2W 12:37 → ED 12:37 → SUATTDRO 19:18 → 2W 19:52